=== PATIENT | male | born 1960 | race Caucasian/White ===

== ENCOUNTER 2017-07-03 12:46 | Emergency (ER) | payer MEDICAID ==
[~2017-07-03] VITALS: Ht 177.8 cm; Wt 125.0 kg
[~2017-07-03 12:46] MED LIST: AMOX1TAB12 PO; ASCO500T6 PO; ASPI-650 PO; CYAN10008 PO; FOLI-17 PO; FURO-92 PO; FURO20TA3 PO; GABA300C10 PO; GLIP5TAB10 PO; HYDR25TA11 PO; INSU100V8 SQ; LORA-445 PO; METF10002 PO; METF500T4 PO; METO50TA82 PO; MULT-484 PO; MULT-750 PO; OMEP-110 PO; OXYC5TAB3 PO; POTA10TA31 PO; POTA20TA14 PO; PROP20TA PO; PROP40TA PO; SERT50TA5 PO; SIMV20TA3 PO; SULF1TAB24 PO; THIA100T6 PO
[2017-07-03 13:28] LABS: BLOOD UREA NITROGEN 9 mg/dL (7-18)
[2017-07-03] MEDS ORDERED: SODIUM CHLORIDE 0.9% 1,000ML IVBOLUS ONE (13:30)
[2017-07-03] MEDS ORDERED: SODIUM CHLORIDE FLUSH 10ML SYR IVF ONE (13:30)
[2017-07-03 13:32] LABS: IS PT STATUS REG ER OR PRE ER? YES
[2017-07-03] MEDS ORDERED: ENOXAPARIN 120MG/0.8ML SQ ONE (15:00)
[2017-07-03 16:57] VITALS: BP 158/86
== END 2017-07-03 16:59 | disposition home or self-care (01) ==
LOC: ED 16:49
DX: I48.2 Chronic atrial fibrillation (principal); E11.9 Type 2 diabetes mellitus without complications; I10 Essential (primary) hypertension; I87.2 Venous insufficiency (chronic) (peripheral)
CPT/HCPCS: 36415; 71010; 80048; 82040; 83880; 84484; 85025; 93005; 96360; 96372; 99285; J1650; J7030